=== PATIENT | female | born 1985 | race African-American/Black ===

== ENCOUNTER 2024-06-20 03:52 | Emergency (ER) | payer BC ==
[2024-06-20 04:03] VITALS: BP 126/87; PULSE 72; RESP 18; TEMP 97.7; BMI 33.3
[2024-06-20 05:56] LABS: EPI CELLS >36 /uL (0-25.1); HYALINE CASTS 5 /uL (0-3.1); PH,URINE 5.5 (5.0-8.0); URINE APPEARANCE CLOUDY; URINE BACTERIA 2744 /uL (0-1359); URINE BILIRUBIN NEGATIVE (NEGATIVE); URINE COLOR YELLOW; URINE GLUCOSE (UA) NEGATIVE (NEGATIVE); URINE KETONE TRACE (NEGATIVE); URINE LEUK ESTERASE TRACE (NEGATIVE); URINE NITRITE NEGATIVE (NEGATIVE); URINE PROTEIN NEGATIVE (NEGATIVE); URINE UROBILINOGEN 0.2 mg/dL (0.2-1.0); URINE WBC 48 /uL (0-25.8)
[2024-06-20 05:57] LABS: BASO % 0.6 % (0-2.0); EOS % 2.4 % (0-4.5); HEMATOCRIT 35.2 % (32.4-45.2); HEMOGLOBIN 11.2 GM/dL (10.7-15.3); MCH 28.6 pg (25.7-33.7); MCHC 31.9 g/dl (32.0-36.0); MEAN CELL VOLUME 89.6 fl (80-96); MEAN PLT VOLUME 7.5 fl (7.5-11.1); MONO % 10.4 % (3.8-10.2); NEUT % 50.6 % (42.8-82.8); PLATELET COUNT 242 10^3/uL (134-434); RBC 3.93 M/mm3 (3.60-5.2); RDW 14.7 % (11.6-15.6); WHITE BLOOD COUNT 7.2 K/mm3 (4.0-10.0)
[2024-06-20 06:12] LABS: POTASSIUM 4.1 mmol/L (3.5-5.1)
[2024-06-20 06:14] LABS: CALCIUM 8.9 mg/dL (8.5-10.1)
[2024-06-20 06:15] LABS: ALBUMIN 3.3 g/dl (3.4-5.0); BLOOD UREA NITROGEN 10.9 mg/dL (7-18)
[2024-06-20 06:18] LABS: CREATININE 0.8 mg/dL (0.55-1.3)
[2024-06-20 06:19] LABS: BILIRUBIN,TOTAL 0.3 mg/dL (0.2-1); TOT PROT 6.5 g/dl (6.4-8.2)
[2024-06-20 07:57] LABS: URINE RBC 31.2 /uL (0-23.9)
[2024-06-20 11:56] LABS: HIV INTERPRETATION NEGATIVE (NEGATIVE)
== END 2024-06-20 06:41 | disposition home or self-care (01) ==
LOC: FER 03:52
DX: R42 Dizziness and giddiness (principal); R68.83 Chills (without fever); Z20.822 Contact with and (suspected) exposure to COVID-19
CPT/HCPCS: 0241U-QW; 36415; 80053; 81003; 85025; 86803; 87086; 87389; 93005; 99284-25